=== PATIENT | female | born 1975 | race Caucasian/White ===

== ENCOUNTER → 2018-01-15 | Outpatient (CLI) | payer OTHER, MEDICAID ==
[~2018-01-15] MED LIST: ACID CONTROL20 MG PO; ADULT TUSS100 MG/5 M PO; ALL DAY ALLERGY10 M3 PO; APAP500 PO; ATIVAN0.5 MG PO; ATIVAN1 MG PO; BACTRIM DS TAB1 EACH PO; BACTROBAN CREAM30 G1; BENZTROPINE MES1 MG PO; BISAC-EVAC10 MG RC; BISACODYL SUPP10 MG RECTAL; CEFTIN500 MG PO; CELEXA40 MG PO; CHERATUSSIN AC S5 ML; CHERATUSSIN AC10 ML PO; COLACE 100 MG100 MG PO; DEPAKOTE ER500 MG PO; DEPO-PROVER150 MG/M1 IM; ENEMA133 ML; EXPECTORAN100 MG/5 M PO; FIBER LAXATIVE660 GM; FIBER SUPPLEME283 GM PO; FLEET ENEMA118 ML RECTAL; FLONASE 0.05%50 MCG NASAL; GEMFIBROZIL 60600 MG PO; GENTAMICIN 0.1%15 G2 TOP; GUAIFENESIN200 MG PO; IBUPROFEN 200200 M1 PO; K-DUR 20 MEQ T20 MEQ PO; LEVOTHYROXINE 0.1 MG PO; LORATIDINE 10 M10 M1 PO; MAPAP16 MG/0.5; METAMUCIL PAC1 UDPKT PO; MIRALAX255 GM PO; MUPIROCIN22 GM TOP; NASAL & SINUS D30 MG PO; OLANZAPINE10 MG PO; OLANZAPINE5 MG PO; OYSTER SHELL C1 EA14 PO; OYSTERCAL-D 501 EACH PO; POLYETHYLENE GLY1 G1; PREDNISONE 10 M10 M1 PO; PSEUDOEPHEDRINE60 M1 PO; REVIA 50 MG TAB50 M1 PO; SENNA CONCENTR8.6 MG PO; SENNA-LAX8.6 MG PO; SUDAFED30 MG PO; SYNTHROID75 MCG PO; THERA-M CAPLET1 EAC1 PO; THEREMS M; TRIPLE ANTIBIO1 EACH; TRIPLE ANTIBIOT30 G2 TOP; VITAMIN E200 UNI4 PO; VITAMIN E400 UNIT PO; ZYRTEC10 M2 PO; [UNRECOGNIZED DRUG - CODE] PO
== END ==
LOC: M.WC 09:00
DX: S01.302A Unspecified open wound of left ear, initial encounter (principal); X58.XXXA Exposure to other specified factors, initial encounter; Y93.89 Activity, other specified; Y92.89 Other specified places as the place of occurrence of the external cause; Y99.8 Other external cause status

== ENCOUNTER → 2018-01-29 | Outpatient (CLI) | payer OTHER, MEDICAID | LOC: M.WC 01:30 | DX: S01.302D Unspecified open wound of left ear, subsequent encounter (principal); X58.XXXD Exposure to other specified factors, subsequent encounter ==

== ENCOUNTER → 2018-02-12 | Outpatient (CLI) | payer OTHER, MEDICAID | LOC: M.WC 04:39 | DX: S01.302D Unspecified open wound of left ear, subsequent encounter (principal); S01.33 Puncture wound without foreign body of ear; X58.XXXD Exposure to other specified factors, subsequent encounter ==

== ENCOUNTER → 2018-02-26 | Outpatient (CLI) | payer OTHER, MEDICAID | LOC: M.WC 02:23 | DX: S01.302D Unspecified open wound of left ear, subsequent encounter (principal); F79 Unspecified intellectual disabilities; X58.XXXD Exposure to other specified factors, subsequent encounter ==

== ENCOUNTER → 2018-07-30 | Outpatient (CLI) | payer OTHER, MEDICAID | LOC: M.WC 08:52 | DX: S01.302D Unspecified open wound of left ear, subsequent encounter (principal); E66.9 Obesity, unspecified; X58.XXXD Exposure to other specified factors, subsequent encounter ==

== ENCOUNTER → 2018-09-03 | Outpatient (CLI) | payer OTHER, MEDICAID | LOC: M.WC 05:24 | DX: L89.892 Pressure ulcer of other site, stage 2 (principal); E66.9 Obesity, unspecified; F78 Other intellectual disabilities ==

== ENCOUNTER → 2018-10-01 | Outpatient (CLI) | payer OTHER, MEDICAID | LOC: M.WC 09-24 10:00 | DX: L89.892 Pressure ulcer of other site, stage 2 (principal); S01.302A Unspecified open wound of left ear, initial encounter; E66.9 Obesity, unspecified; X58.XXXA Exposure to other specified factors, initial encounter; Y93.89 Activity, other specified; Y92.89 Other specified places as the place of occurrence of the external cause; Y99.8 Other external cause status ==

== ENCOUNTER → 2018-10-22 | Outpatient (CLI) | payer OTHER | LOC: M.WC 05:17 | DX: L89.892 Pressure ulcer of other site, stage 2 (principal); S01.302D Unspecified open wound of left ear, subsequent encounter; X58.XXXD Exposure to other specified factors, subsequent encounter ==

== ENCOUNTER → 2018-12-10 | Outpatient (CLI) | payer OTHER | LOC: M.WC 12-03 04:47 | DX: L98.491 Non-pressure chronic ulcer of skin of other sites limited to breakdown of skin (principal); E66.9 Obesity, unspecified; G70.9 Myoneural disorder, unspecified ==

== ENCOUNTER → 2019-01-07 | Outpatient (CLI) | payer OTHER | LOC: M.WC 05:11 | DX: L89.893 Pressure ulcer of other site, stage 3 (principal); S01.302A Unspecified open wound of left ear, initial encounter; E66.9 Obesity, unspecified; X58.XXXA Exposure to other specified factors, initial encounter; Y93.89 Activity, other specified; Y92.89 Other specified places as the place of occurrence of the external cause; Y99.8 Other external cause status ==

== ENCOUNTER → 2019-01-21 | Outpatient (CLI) | payer OTHER | LOC: M.WC 04:44 | DX: L89.893 Pressure ulcer of other site, stage 3 (principal); S01.302D Unspecified open wound of left ear, subsequent encounter; B95.62 Methicillin resistant Staphylococcus aureus infection as the cause of diseases classified elsewhere; E66.9 Obesity, unspecified; X58.XXXD Exposure to other specified factors, subsequent encounter ==

== ENCOUNTER → 2019-02-11 | Outpatient (CLI) | payer OTHER | LOC: M.WC 10:00 | DX: L89.893 Pressure ulcer of other site, stage 3 (principal); S01.33 Puncture wound without foreign body of ear; E66.9 Obesity, unspecified; X58.XXXD Exposure to other specified factors, subsequent encounter ==